=== PATIENT | male | born 1995 | race Caucasian/White ===

== ENCOUNTER 2017-10-26 21:57 | Emergency (ER) | payer SELFPAY ==
[~2017-10-26] VITALS: Ht 177.8 cm; Wt 95.5 kg
[~2017-10-26 21:57] MED LIST: NO HOME MEDICATIONS
[2017-10-26 22:00] VITALS: TEMP 97.9
[2017-10-26] MEDS ORDERED: KLOR-CON SPRIN10 MEQ PO (22:03)
[2017-10-26] MEDS ORDERED: VITAMIN B100 CO1 TAB (22:03)
[2017-10-26 22:33] LABS: ALBUMIN 4.7 gm/dL (3.5-5.0); BILIRUBIN,TOTAL 3.2 mg/dL (0.0-1.0); CREATININE, serum 0.85 mg/dL (0.66-1.25); POTASSIUM 3.2 mmol/L (3.4-5.0); TOTAL PROTEIN 8.6 gm/dL (6.4-8.2)
[2017-10-26 22:34] LABS: BASO % 0.7 % (0.0-2.0); EOS # 0.2 (0.0-0.7); EOS % 2.6 % (0-4.0); GRAN # 3.5 (1.4-6.5); HEMATOCRIT 49.2 % (42.0-52.0); HEMOGLOBIN 16.7 g/dl (13.5-18.0); LYMPH # 1.2 (1.2-3.4); LYMPH % 21.7 % (20.0-51.0); MEAN CELL VOLUME 84 fl (80.0-100.0); MEAN CORPUSCULAR HEMOGLOBIN 29 pg (27.0-31.0); MEAN CORPUSCULAR HGB CONC 34 g/dl (33.0-37.0); MEAN PLATELET VOLUME 9.9 fl (7.4-10.4); MONO # 0.7 (0.1-0.6); MONO % 12.5 % (1.7-9.3); PLATELET COUNT 179 K/mm3 (130-400); RED BLOOD COUNT 5.84 M/mm3 (4.20-5.60); REDCELL DISTRIBUTION WIDTH-CV 13.9 % (11.5-14.5)
[2017-10-26 22:53] VITALS: BP 142/79
[2017-10-26 23:16] LABS: INR 1.1 (0.8-3.0)
[2017-10-26 23:54] VITALS: PULSE 86
== END 2017-10-26 23:56 | disposition home or self-care (01) ==
LOC: COL.ER 21:57
PROVIDERS: Emergency Medicine
DX: K70.10 Alcoholic hepatitis without ascites (principal); F17.210 Nicotine dependence, cigarettes, uncomplicated
CPT/HCPCS: J2765; J7030

== ENCOUNTER 2018-07-16 16:16 | Inpatient (IN) | payer OTHER ==
[~2018-07-16] VITALS: Wt 122.0 kg
[~2018-07-16 16:16] MED LIST changes: +KLOR-CON SPRIN10 MEQ PO; +VITAMIN B100 CO1 TAB
[2018-07-16 17:07] LABS: BASO % 0.2 % (0.0-2.0); GRAN # 19.2 (1.4-6.5); GRAN % 83.3 % (42.2-75.2); HEMATOCRIT 51.3 % (42.0-52.0); LYMPH # 2.1 (1.2-3.4); LYMPH % 9.2 % (20.0-51.0); MEAN CELL VOLUME 82 fl (80.0-100.0); MEAN CORPUSCULAR HEMOGLOBIN 30 pg (27.0-31.0); MEAN CORPUSCULAR HGB CONC 36 g/dl (33.0-37.0); MEAN PLATELET VOLUME 10.1 fl (7.4-10.4); MONO # 1.5 (0.1-0.6); MONO % 6.4 % (1.7-9.3); PLATELET COUNT 282 K/mm3 (130-400); RED BLOOD COUNT 6.26 M/mm3 (4.20-5.60); REDCELL DISTRIBUTION WIDTH-CV 12.2 % (11.5-14.5)
[2018-07-16 17:11] LABS: HEMOGLOBIN 18.6 g/dl (13.5-18.0)
[2018-07-16 17:18] LABS: ALANINE AMINOTRANSFERASE 153 U/L (21-72); ALBUMIN 4.7 gm/dL (3.5-5.0); ALKALINE PHOSPHATASE 154 U/L (50-136); ANION GAP 17 mmol/L (7-16); AST,SGOT 246 U/L (15-37); BILIRUBIN,TOTAL 4.2 mg/dL (0.0-1.0); BLOOD UREA NITROGEN 22 mg/dL (9-20); CARBON DIOXIDE 37 mmol/L (22-30); CREATININE, serum 1.45 (0.66-1.25); GLUCOSE 110 mg/dL (74-106); SODIUM 131 mmol/L (137-145); TOTAL PROTEIN 8.8 gm/dL (6.4-8.2)
[2018-07-16 17:57] LABS: ACETAMINOPHEN < 10 ug/mL (10-30); ALCOHOL(ethanol),MEDICAL < 10 mg/dL; CHLORIDE 77 mmol/L (98-107); CREATINE KINASE 2423 U/L (55-170); POTASSIUM 2.7 mmol/L (3.4-5.0); SALICYLATE < 1.0 mg/dL
[2018-07-16 21:27] LABS: INR 1.2 (0.8-3.0); PROTHROMBIN TIME 14.1 SECONDS (9.7-12.8)
[2018-07-16 21:52] LABS: CREATININE, serum 1.2 (0.66-1.25)
[2018-07-16 22:06] LABS: POTASSIUM 2.4 mmol/L (3.4-5.0)
--- NOTE | 2018-07-16 23:50 | NUR ---
RECEIVED ORDERS FROM DR. ARTHUR FOR 1MG/IV ATIVAN NOW. WHEN RETURNED WITH IV ATIVAN WAS NOT ABLE TO GIVE TO PT BECAUSE PT, PULLED OUT HIS IV AND HAD URINATED ON BATHROOM FLOOR. UNABLE TO GET ANOTHER IV DUE TO PT UP AND DOWN. RECEIVED ANOTHER ORDER FOR ATIVAN 2MG/IM.
--- NOTE | 2018-07-16 23:54 | NUR ---
PT UNCOOPERATIVE, PULLED OUT IV AND PEED ALL OVER BATHROOM FLOOR. PT GIVEN 2MG/IM ATIVAN IN LEFT DELTOID.
[2018-07-17] VITALS (713 sets, daily range): BP systolic 99–174; BP diastolic 52–106; PULSE 74–126; TEMP 97.6–99.1; O2SAT 61–100
--- NOTE | 2018-07-17 00:10 | NUR ---
ATIVAN 2MG/IM WAS GIVEN IN LEFT DELTOID OF PT. PT TRYING TO EAT PAPER TOWEL AND BANDAID ON HAND. PT REDIRECTED TO STOP. PT UP AND ALL OVER ROOM. STAFF IN ROOM WITH PT ALONG WITH PT'S MOTHER.
[2018-07-17 00:53] LABS: CALCIUM 8.7 mg/dL (8.4-10.2); CREATININE, serum 1.11 (0.66-1.25); POTASSIUM 3.2 mmol/L (3.4-5.0)
--- NOTE | 2018-07-17 01:35 | NUR ---
Pt arrived via wheelchair X3 staff assist and mother. Pt had street clothes on at this time. Got out of wheelchair and was noted to be pacing around ICU02. Pt was easily distracted and would listen after being told what to do from mother although increased restless was noted following moments into arrival. Pt would sit on the bed and would lay back so head was hanging over the bed sideways. IV was attempted although pt would not hold still in order for IV to be completely inserted. Mother was very cooperative with staff during this time encouraging pt to listen and telling pt to complete the tasks given by staff members.
--- NOTE | 2018-07-17 01:40 | NUR ---
GAVE REPORT TO MARTHA RN/ICU NURSE AND BROUGHT PT DOWN TO ICU IN WHEELCHAIR. PT SAT IN W/C BUT WAS UNCOOPERATIVE, BY PUTTING HANDS OUTSIDE OF W/C WHEN ASKED NOT TO AND THEN TOOK FEET OFF FOOT PEDALS, WOULD NOT PUT THEM BACK ON. PT ALSO TRIED TO PULL THE LEG REST AND FOOT PEDAL OFF THE WHEEL CHAIR. PT BROUGHT DOWN TO ROOM 2 AND WAS ACCOMPANIED BY MOTHER, MYCHAL HERMOSILLO RN, AND MYSELF. PT MADE IT SAFELY TO ROOM.
--- NOTE | 2018-07-17 02:00 | NUR ---
IV was inserted into the left hand and intubation completed following sedation medication. Pt continuing to thrash head from side to side, not tolerating the ventilator. More medication orders provided from Dr. Piña at this time.
--- NOTE | 2018-07-17 02:30 | NUR ---
Following intubation, pt was not tolerting vent with sounds consistent with gagging. Pt vomitted around ETT which was promptly suctioned as quickly as possible, down the ETT and oral suction. Pt continues to be restless and fighting the vent with continued medications tried per verbal orders from Dr. Piña at bedside.
[2018-07-17 03:07] LABS: COLLECTION METHOD CLEAN CATCH
[2018-07-17 03:29] LABS: AMORPHOUS CRYSTAL Present /uL; MUCOUS Present /lpf; PH 6 (5-8); SQUAMOUS EPITHELIAL 0-2 /hpf; URINE APPEARANCE Cloudy; URINE BACTERIA Rare /hpf; URINE BILIRUBIN Negative (NEGATIVE); URINE BLOOD Negative (NEGATIVE); URINE COLOR Amber; URINE GLUCOSE Negative (NEGATIVE); URINE KETONE Negative (NEGATIVE); URINE LEUKOCYTE ESTERASE Negative (NEGATIVE); URINE NITRATE Negative (NEGATIVE); URINE PROTEIN(semi-quant) 1+ (NEGATIVE); URINE RBC 0-2 /hpf; URINE UROBILINOGEN >=4.0 mg/dL (NEGATIVE)
[2018-07-17 03:34] LABS: ARTERIAL BLOOD GAS PCO2 41.5 mmHg (35-45); ARTERIAL BLOOD GAS PO2 480.6 mmHg (80-100)
[2018-07-17 03:35] LABS: ARTERIAL BLD GAS O2 SATURATION 99.4 % (92-100); ARTERIAL BLOOD GAS BASE EXCESS 6.8 (-2-2); ARTERIAL BLOOD GAS HCO3 30.8 meq/L (22-26)
[2018-07-17 03:36] LABS: TRICYCLIC ANTIDEPRESS URINE NEGATIVE
[2018-07-17 06:20] LABS: MEAN CELL VOLUME 83 fl (80.0-100.0); MEAN CORPUSCULAR HGB CONC 36 g/dl (33.0-37.0); MEAN PLATELET VOLUME 10.4 fl (7.4-10.4); RED BLOOD COUNT 4.69 M/mm3 (4.20-5.60); REDCELL DISTRIBUTION WIDTH-CV 12.6 % (11.5-14.5)
--- NOTE | 2018-07-17 06:25 | NUR ---
PT NOT ON SMART CARE NOT INTUBATED FOR 24 HOURS
[2018-07-17 06:29] LABS: MEAN CORPUSCULAR HEMOGLOBIN 30 pg (27.0-31.0)
[2018-07-17 06:32] LABS: HEMOGLOBIN 13.9 g/dl (13.5-18.0)
[2018-07-17 06:33] LABS: PLATELET COUNT 175 K/mm3 (130-400)
[2018-07-17 06:35] LABS: ALBUMIN 3.2 gm/dL (3.5-5.0); BILIRUBIN,TOTAL 2.5 mg/dL (0.0-1.0); CALCIUM 8.3 mg/dL (8.4-10.2); CREATININE, serum 0.85 (0.66-1.25)
--- NOTE | 2018-07-17 07:00 | NUR ---
Bedside report provided to Jose LEAL.
--- NOTE | 2018-07-17 08:00 | NUR ---
Shift assessment complete at this time. Unable to review plan of care r/t no family present et pt intubation et sedation. Vitals stable at this time. Pt in no signs of pain or discomfort. Decreasing sedation to see Pt responsiveness. Will continue to monitor.
--- NOTE | 2018-07-17 12:00 | NUR ---
Shift reassessment complete at this time. No changes from previous assessment. Vitals stable at this time. Pt follows commands and responds to voice while on ventilator. Denies pain or any other discomfort. Bed in low position, call light within reach. Will continue to monitor.
--- NOTE | 2018-07-17 13:43 | NUR ---
Patient remains intubated. KENNEDI met with patient's mother, Sade and father, Karsten. Patient lives at home with his mother and father. Patient does not have a PCP or insurance. It is noted in patient's H&P that there is a history of alcohol and meth use. SW inquired about this. Patient's parents reported that patient does not have a history of meth use but he does have a history of alcohol use. It was mentioned in the ED that patient's friend is a meth user but patient is not. Patient mother reports that he does smoke marijuana but not everyday. Patient's mother explained patient's history with alcohol use. Patient doesn't drink very often but when he does, he usually binges. She reported that patient was offered a job this past week and that opportunity caused patient to feel anxious. Due to the anxiety, patient started binge drinking, was sick for a day or two and then this weekend, he started hallucinating, which then caused patient's father to bring him to the ED. Patient's mother also mentioned that patient has been seen by a counselor in the past because it was mandated but patient has not seen that counselor since last year. Patient family did inquire if patient will get a psych consult once he is extubated. KENNEDI reported it is likley that patient will be see by a psych doctor. KENNEDI will continue to follow and be available to family. Mother-Sade ([phone]) Father-Karsten ([phone])
--- NOTE | 2018-07-17 16:00 | NUR ---
Shift reassessment complete at this time. No changes from previous assessments. Vitals stable. Pt awakens easily to voice and follows commands. Denies pain or any other discomfort. Bed in low position, call light within reach. Will continue to monitor.
[2018-07-17 16:26] LABS: CALCIUM 8.3 mg/dL (8.4-10.2); CREATININE, serum 0.87 (0.66-1.25); MAGNESIUM 2.3 mg/dL (1.6-2.3); PHOSPHOROUS 3.7 mg/dL (2.5-4.5); POTASSIUM 3.7 mmol/L (3.4-5.0)
--- NOTE | 2018-07-17 17:00 | NUR ---
Pt becomes restless and anxious with decrease in sedation from current doses. Pt currently awakens easily to voice and follows commands. Will continue to monitor and titrate sedation as ordered.
[2018-07-17 17:22] LABS: ARTERIAL BLD GAS O2 SATURATION 97.3 % (92-100); ARTERIAL BLD GAS TCO2 CT 28.3; ARTERIAL BLOOD GAS BASE EXCESS 2.8 (-2-2); ARTERIAL BLOOD GAS HCO3 27.1 meq/L (22-26); ARTERIAL BLOOD GAS PCO2 40.3 mmHg (35-45); ARTERIAL BLOOD GAS PO2 105.2 mmHg (80-100); ARTERIAL BLOOD GAS pH 7.45 (7.35-7.45)
--- NOTE | 2018-07-17 19:32 | NUR ---
Bedside report given to ELVIS Herron.
[2018-07-18] VITALS (330 sets, daily range): BP systolic 120–151; BP diastolic 53–80; PULSE 84–141; TEMP 97.7–100.2; O2SAT 83–100
--- NOTE | 2018-07-18 01:22 | NUR ---
Pt resting in bed, able to write down questions and verbalize understanding. POC discussed with pt and pt again able to verbalize understanding. VSS. Pt c/o pain in throat and feet, pain med gtt increased and pt reposition, pt reported that his discomfort had been resolved. Will continue to monitor.
[2018-07-18 05:14] LABS: BASO % 0.2 % (0.0-2.0); EOS # 0.2 (0.0-0.7); EOS % 1.2 % (0-4.0); GRAN # 10.3 (1.4-6.5); GRAN % 76.1 % (42.2-75.2); HEMOGLOBIN 12.1 g/dl (13.5-18.0); LYMPH # 2.1 (1.2-3.4); LYMPH % 15.4 % (20.0-51.0); MEAN CORPUSCULAR HEMOGLOBIN 30 pg (27.0-31.0); MEAN CORPUSCULAR HGB CONC 34 g/dl (33.0-37.0); MEAN PLATELET VOLUME 10.2 fl (7.4-10.4); MONO # 0.8 (0.1-0.6); PLATELET COUNT 129 K/mm3 (130-400); RED BLOOD COUNT 4.02 M/mm3 (4.20-5.60); REDCELL DISTRIBUTION WIDTH-CV 12.8 % (11.5-14.5)
[2018-07-18 05:16] LABS: HEMATOCRIT 35.8 % (42.0-52.0); MEAN CELL VOLUME 89 fl (80.0-100.0)
[2018-07-18 05:24] LABS: ARTERIAL BLD GAS O2 SATURATION 95.6 % (92-100); ARTERIAL BLD GAS TCO2 CT 24.6; ARTERIAL BLOOD GAS BASE EXCESS -0.8 (-2-2); ARTERIAL BLOOD GAS HCO3 23.5 meq/L (22-26); ARTERIAL BLOOD GAS PCO2 37.6 mmHg (35-45); ARTERIAL BLOOD GAS PO2 83.1 mmHg (80-100); ARTERIAL BLOOD GAS pH 7.41 (7.35-7.45)
[2018-07-18 05:27] LABS: ALBUMIN 2.9 gm/dL (3.5-5.0); BILIRUBIN,TOTAL 1.7 mg/dL (0.0-1.0); CALCIUM 8.1 mg/dL (8.4-10.2); CREATININE, serum 0.74 (0.66-1.25); MAGNESIUM 2.2 mg/dL (1.6-2.3); POTASSIUM 3.5 mmol/L (3.4-5.0); TOTAL PROTEIN 5.5 gm/dL (6.4-8.2)
--- NOTE | 2018-07-18 06:38 | NUR ---
PT PLACED ON CPAP FOR WEANING PURPOSES NO SMART CARE ON THIS VENT IT IS A RENTAL. PT AYAN WELL AND IS COMPLETLY COMFORTABLE AND IN NO RESTRAINTS. DAY SHIFT RT IS NOTIFIED.
--- NOTE | 2018-07-18 07:17 | NUR ---
Pt awake/ alert and orienated on gtt, able to f/c and breathing with no distress on cpap
--- NOTE | 2018-07-18 07:53 | NUR ---
PT DID CPAP TRIAL UP TIL THIS POINT. PT TOLERATING 5/+5 WITH OUT DISTRESS. NIF -45; POSITIVE CUFF LEAK. PT EXTUBATED AT THIS TIME PER DR. JOYA AT BEDSIDE. PT SUCTIONED PRIOR TO FOR A SMALL AMOUNT OF OSORIO SECRETIONS. PT PLACED ON 4L OM AT THIS TIME. NASAL CANNULA LEFT AT BEDSIDE IF OM IS TOLERATED.
--- NOTE | 2018-07-18 08:00 | NUR ---
Shift assessment complete at this time. Plan of care reviewed at bedside with patient et family. Pt extubated to 4L oxymask at 0753. Pt tolerated extubation well with only complaint of a sore throat. Vitals stable post extubation. Denies pain or any other discomfort. Will continue to monitor.
--- NOTE | 2018-07-18 08:45 | NUR ---
PICC intact right upper arm with sterile dressing change done due to patch with moderate amount of dried reddish drainage noted. with sterile technique righ upper arm PICC dressing change done with insertion site cleansed with chloraprep x 1, chlorhexidine impregnated disk, skin prep, stat lock, and tegaderm applied. no signs or symptoms of IV complications noted. no concerns voiced. re-wrapped arm with iris to protect catheter.
--- NOTE | 2018-07-18 09:53 | NUR ---
Initial visit; Patient and family thanked Forestry Scientist for looking in on him and offering God's blessings and for bringing him a New Testament upon request.
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
--- NOTE | 2018-07-18 14:53 | NUR ---
Pt left unit at this time with radiology staff for CT of head.
--- NOTE | 2018-07-18 15:08 | NUR ---
Pt back from Ct at this time. Pt tolerated transfer and procedure well with no complaints or concerns raised.
--- NOTE | 2018-07-18 15:30 | NUR ---
Pt in bed, denies any pain. Breathing even and unlabored. Denies shortness of breath. Pt currently has a catheter inserted with orders to DC. 500 ml in bag. Skin is warm and dry to touch. No tremors noted. PICC to RON and left hand INT. No redness or swelling noted. Pt is alert and oriented x4. Oriented to room, assessment completed. Call light in reach.
--- NOTE | 2018-07-18 15:32 | NUR ---
Pt transported to bed 358 via wheelchair. Pt tolerated transfer well with no complaints of pain or any other discomfort. Report called prior to transfer to receiving ELVIS Graham
--- NOTE | 2018-07-18 16:30 | NUR ---
Removed bhatia catheter. Removed 8ml from balloon. 500ml of clear yellow urine drained from bag. Pt tolerated well. No discharge noted. Will continue to monitor.
--- NOTE | 2018-07-18 19:24 | NUR ---
Report given to Flakito LEAL. Pt out of shower, tele back on. Denies any pain, but scoring on alcohol detox protocol due to high blood pressure and heart rate. Denies any anxiety, no tremors noted. Family in room. Call light in reach.
--- NOTE | 2018-07-18 21:01 | NUR ---
Pt resting in bed, C/O headache, shift assessments complete, leftPt call light in reach, bed in lowest position, .
[2018-07-19] VITALS (7 sets, daily range): BP systolic 132–147; BP diastolic 73–91; PULSE 106–120; TEMP 98.2–99.6
--- NOTE | 2018-07-19 05:25 | NUR ---
Pt slept well during the night, he has not been scoring high on the detox protocol only needing medications once during the shift, no noticable aggravation with encounters during the shift, his VS have remained stable during the night.
[2018-07-19 06:47] LABS: HEMATOCRIT 39.2 % (42.0-52.0); MEAN CELL VOLUME 88 fl (80.0-100.0); MEAN CORPUSCULAR HEMOGLOBIN 29 pg (27.0-31.0); MEAN CORPUSCULAR HGB CONC 33 g/dl (33.0-37.0); MEAN PLATELET VOLUME 10.3 fl (7.4-10.4); PLATELET COUNT 129 K/mm3 (130-400); RED BLOOD COUNT 4.44 M/mm3 (4.20-5.60); REDCELL DISTRIBUTION WIDTH-CV 12.9 % (11.5-14.5)
--- NOTE | 2018-07-19 07:00 | NUR ---
Report received from ELVIS Fraga. Pt in bed sleeping, wants to continue to rest. Denies needs, will continue to monitor.
[2018-07-19 07:03] LABS: BILIRUBIN,TOTAL 1.1 mg/dL (0.0-1.0); CALCIUM 8.4 mg/dL (8.4-10.2); CREATININE, serum 0.59 (0.66-1.25); POTASSIUM 3.4 mmol/L (3.4-5.0); TOTAL PROTEIN 5.9 gm/dL (6.4-8.2)
[2018-07-19 07:07] LABS: EOSINOPHIL 2 % (0-4); LYMPHOCYTE 19 % (20.0-51.0); NEUTROPHILS 73 % (42.0-75.2); NUCLEATED RED BLOOD CELL 1 (0-6)
[2018-07-19 07:08] LABS: BURR CELLS 1+; PLATELET ESTIMATE DECREASED (NORMAL)
--- NOTE | 2018-07-19 10:02 | NUR ---
Assessment charted. INT d/c'd to LH, not needed. Scored 5 for tachycardia, BP, low grade fever, and anxiety. Pt feeling well. Denies pain. PICC to RON with K+ infusing. Will continue to monitor.
--- NOTE | 2018-07-19 14:03 | NUR ---
KENNEDI attended clinical rounds. The patient reports that he was drinking around 1/2 pint of vodka a day before being admitted into the hospital. The hospitalist discussed treatment options. The patient reports that he is not interested in inpatient treatment, but states that he has received outpatient treatment from [facility] on [facility] in the past and that helped him. He reports that he plans to utilize their services again upon discharge. KENNEDI then followed up with the patient and his sister. The patient reports that he plans to return home with his mother and father. He states that him and his sister have discussed moving to [place] or [facility], where his brother lives, for a fresh start and better influences. He reports that he plans to go to meetings at [facility] upon discharge. KENNEDI asked the patient if he would like for KENNEDI to set him up an appointment there. The patient reports that they accept appointments or walk-ins. He states that he plans to contact them. KENNEDI then discussed if the patient would be interested in getting set up with primary care. The patient and his sister were interested in the [facility]. KENNEDI contacted and made an appointment for the patient on Tuesday, 07/26, at 1400. KENNEDI provided the patient with [facility] registration packet. KENNEDI then informed the patient's PA and the community service officer coordinator. KENNEDI faxed the patient's records to [facility]. KENNEDI will need to fax the patient's discharge orders to [facility] when finalized. KENNEDI to continue to follow.
[2018-07-19] MEDS ORDERED: FOLIC ACID 11 MG/TA1 PO (15:12)
[2018-07-19] MEDS ORDERED: THIAMINE 1100 MG/TAB PO (15:13)
[2018-07-19] MEDS ORDERED: DUO-KAPS1 CAP PO (15:13)
--- NOTE | 2018-07-19 16:46 | NUR ---
Discharge teaching completed at this time. PICC d/c'd with student nurse, tip intact, pt tolerated well, reviewed f/u care of PICC site. Reviewed f/u appointment, dishcarge packet, answered all questions. Pt left wtih all bleongings, escorted out by myself. Sister to drive home, criteria met.
--- NOTE | 2018-07-20 08:43 | NUR ---
KENNEDI faxed the patient's discharge orders to [facility]. No additional needs at this time.
== END 2018-07-19 16:53 | disposition home or self-care (01) | DRG 897 ==
LOC: COL.ER 16:16 → MEDICAL 21:34 → COL.ER 23:10 → MEDICAL 07-17 01:34 → ICU 07-17 01:34 → MEDICAL 07-18 15:25
PROVIDERS: Emergency Medicine; Internal Medicine Pulmonary Disease; Nurse Practitioner Family; ADMIT Internal Medicine
PROC: 0BH17EZ Insertion of Endotracheal Airway into Trachea, Via Natural or Artificial Opening (ICD-10-PCS; principal; 2018-07-17)
PROC: 5A1945Z Respiratory Ventilation, 24-96 Consecutive Hours (ICD-10-PCS; 2018-07-17)
DX: F10.239 Alcohol dependence with withdrawal, unspecified (principal); M62.82 Rhabdomyolysis; N17.9 Acute kidney failure, unspecified; R44.3 Hallucinations, unspecified; E87.6 Hypokalemia; K70.10 Alcoholic hepatitis without ascites; K72.90 Hepatic failure, unspecified without coma; F17.290 Nicotine dependence, other tobacco product, uncomplicated; D72.829 Elevated white blood cell count, unspecified; F15.10 Other stimulant abuse, uncomplicated; F19.10 Other psychoactive substance abuse, uncomplicated; Y90.0 Blood alcohol level of less than 20 mg/100 ml; R74.8 Abnormal levels of other serum enzymes; F16.10 Hallucinogen abuse, uncomplicated
CPT/HCPCS: 99223-AI; 99232-AI; 99239; C1751; J0330; J1200; J1630; J1650; J2060; J2250; J2704; J3010; J3480; J7030

== ENCOUNTER → 2018-08-01 | Outpatient (CLI) | payer OTHER ==
[~2018-08-01] MED LIST changes: +DUO-KAPS1 CAP PO; +FOLIC ACID 11 MG/TA1 PO; +THIAMINE 1100 MG/TAB PO
== END ==
LOC: BHSO 12:55
DX: F10.20 Alcohol dependence, uncomplicated (principal)

== ENCOUNTER → 2018-08-04 | Outpatient (CLI) | payer OTHER ==
[2018-08-04 10:14] LABS: BASO # 0.1 (0.0-0.2); BASO % 0.6 % (0.0-2.0); EOS # 0.2 (0.0-0.7); EOS % 1.9 % (0-4.0); GRAN # 5.6 (1.4-6.5); GRAN % 62.4 % (42.2-75.2); LYMPH # 2.5 (1.2-3.4); LYMPH % 27.2 % (20.0-51.0); MEAN CELL VOLUME 90 fl (80.0-100.0); MEAN CORPUSCULAR HEMOGLOBIN 29 pg (27.0-31.0); MEAN CORPUSCULAR HGB CONC 33 g/dl (33.0-37.0); MEAN PLATELET VOLUME 8.9 fl (7.4-10.4); MONO # 0.7 (0.1-0.6); MONO % 7.2 % (1.7-9.3); PLATELET COUNT 386 K/mm3 (130-400)
[2018-08-04 10:24] LABS: BILIRUBIN,TOTAL 0.4 mg/dL (0.0-1.0); CALCIUM 9.4 mg/dL (8.4-10.2); CREATININE, serum 0.77 (0.66-1.25); POTASSIUM 4.2 mmol/L (3.4-5.0); TOTAL PROTEIN 7.4 gm/dL (6.4-8.2)
== END ==
LOC: COL.RAD 09:45
PROVIDERS: Registered Nurse
DX: D72.829 Elevated white blood cell count, unspecified (principal); K76.0 Fatty (change of) liver, not elsewhere classified; K82.8 Other specified diseases of gallbladder

== ENCOUNTER → 2018-08-31 | Outpatient (CLI) | payer OTHER | LOC: BHSO 14:45 | DX: F10.20 Alcohol dependence, uncomplicated (principal) | CPT/HCPCS: G0463 ==

== ENCOUNTER → 2019-05-03 | Outpatient (CLI) | payer SELFPAY | LOC: BHSO 13:55 | DX: F10.20 Alcohol dependence, uncomplicated (principal) | CPT/HCPCS: G0463 ==

== ENCOUNTER 2019-05-31 22:47 | Emergency (ER) | payer SELFPAY ==
[~2019-05-31] VITALS: Ht 185.4 cm; Wt 118.2 kg
[2019-05-31 22:53] VITALS: BP 130/73; TEMP 98.9
[2019-05-31] MEDS ORDERED: DESYREL 50MG50 MG PO (22:56)
[2019-05-31] MEDS ORDERED: DESYREL DIVIDO150 M1 PO (22:56)
[2019-05-31] MEDS ORDERED: INDERAL 10MG10 MG PO (22:56)
[2019-05-31] MEDS ORDERED: ULTRAM 50MG TAB50 MG PO (23:25)
[2019-05-31] MEDS ORDERED: AMOXICILLIN 50500 MG PO (23:25)
[2019-06-01 00:57] VITALS: PULSE 54
== END 2019-06-01 01:00 | disposition home or self-care (01) ==
LOC: COL.ER 22:47
DX: K02.9 Dental caries, unspecified (principal); K04.7 Periapical abscess without sinus; F17.210 Nicotine dependence, cigarettes, uncomplicated
CPT/HCPCS: J1885

== ENCOUNTER → 2019-08-24 | Outpatient (CLI) | payer SELFPAY ==
[~2019-08-24] MED LIST changes: +AMOXICILLIN 50500 MG PO; +DESYREL 50MG50 MG PO; +DESYREL DIVIDO150 M1 PO; +INDERAL 10MG10 MG PO; +LIBRIUM 10M10 MG/CAP PO; +ULTRAM 50MG TAB50 MG PO
== END ==
LOC: BHSO 15:40
DX: F41.0 Panic disorder [episodic paroxysmal anxiety] (principal)
CPT/HCPCS: G0463

== ENCOUNTER 2019-11-06 14:11 | Emergency (ER) | payer SELFPAY ==
[~2019-11-06] VITALS: Ht 185.4 cm; Wt 100.0 kg
[2019-11-06 14:17] VITALS: TEMP 98.2
[2019-11-06] MEDS ORDERED: PAXIL 20MG20 MG PO (14:27)
[2019-11-06] MEDS ORDERED: SEROQUEL50 MG PO (14:27)
[2019-11-06] MEDS ORDERED: DOXYCYCLINE 10100 MG PO (14:56)
[2019-11-06 15:11] VITALS: BP 136/73; PULSE 77
== END 2019-11-06 15:11 | disposition home or self-care (01) ==
LOC: COL.ER 14:11
DX: L02.511 Cutaneous abscess of right hand (principal); Z88.6 Allergy status to analgesic agent